=== PATIENT | female | born 1995 | race Caucasian/White ===

== ENCOUNTER 2016-05-05 15:39 | Emergency (ER) | payer MEDICAID ==
--- NOTE | 2016-05-05 16:09 | ER Document Report ---
ED Medical Screen (RME) - General Stated Complaint: FLU LIKE SYMPTOMS Notes: 21yo female c/o cold symptoms x 1 week. runny nose, sneezing, sore throat, no fever - Related Data Allergies/Adverse Reactions: No Known Allergies Allergy (Unverified 05/05/16 16:07) Physical Exam - Vital signs Vitals: Temp Pulse Resp BP Pulse Ox 97.9 F 83 16 122/73 99 05/05/16 15:53 05/05/16 15:53 05/05/16 15:53 05/05/16 15:53 05/05/16 15:53 Course - Vital Signs Vital signs: Temp Pulse Resp BP Pulse Ox 97.9 F 83 16 122/73 99 05/05/16 15:53 05/05/16 15:53 05/05/16 15:53 05/05/16 15:53 05/05/16 15:53
--- NOTE | 2016-05-05 17:41 | ER Document Report ---
ED General - General Chief Complaint: Cold Symptoms Stated Complaint: FLU LIKE SYMPTOMS Mode of Arrival: Ambulatory Information source: Patient Notes: Patient is 21 yo white FM who presents with 1 week history of rhinorrhea, sneezing, sore throat, productive cough (green mucus) and generalized body aches. She states one night she did have chills, did not check temperature and episode of nausea without vomiting. 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 She has tried OTC medications with no relief. TRAVEL OUTSIDE OF THE [place] IN LAST 30 DAYS: No - Related Data Allergies/Adverse Reactions: No Known Allergies Allergy (Unverified 05/05/16 16:07) Past Medical History - General Information source: Patient - Social History Smoking Status: Never Smoker Chew tobacco use (# tins/day): No Frequency of alcohol use: None Drug Abuse: None Family History: Malignancy Patient has suicidal ideation: No Patient has homicidal ideation: No Renal/ Medical History: Denies: Hx Peritoneal Dialysis - Immunizations Hx Diphtheria, Pertussis, Tetanus Vaccination: Yes Review of Systems - Review of Systems Constitutional: See HPI EENT: See HPI Cardiovascular: No symptoms reported Respiratory: No symptoms reported Gastrointestinal: See HPI Genitourinary: No symptoms reported Female Genitourinary: No symptoms reported Musculoskeletal: No symptoms reported Skin: No symptoms reported Hematologic/Lymphatic: No symptoms reported Neurological/Psychological: No symptoms reported Physical Exam - Vital signs Vitals: Temp Pulse Resp BP Pulse Ox 97.9 F 83 16 122/73 99 05/05/16 15:53 05/05/16 15:53 05/05/16 15:53 05/05/16 15:53 05/05/16 15:53 Interpretation: Normal - Notes Notes: PHYSICAL EXAM: CONSTITUTIONAL: Alert and oriented, well-appearing and in no acute distress. HENT: Normocephalic, atraumatic. Ear canals with cerumen impaction b/l. Nares clear without erythema, septal hematoma or deviation, airway patent. Oropharynx clear without erythema, tonsilar exudate or malocclusion. Trachea midline. Uvula midline. Moist mucous membranes. EYES: Pupils equal round and reactive to light, EOM intact. Sclera anicteric, conjunctiva are normal. No entrapment. NECK: supple without lymphadenopathy. ROM intact. HEART: Regular rate and rhythm without murmurs. LUNGS: CTAB and equal. No wheezes, rales or rhonchi. GI: Normactive bowel sounds. Nontender, non-distended. No organomegaly. no CVAT. EXTREMITIES: Normal range of motion, no pitting edema. No cyanosis. Cap Refill < 3 seconds. SKIN: Warm and dry. Normal turgor. No rashes or lesions noted. Course - Re-evaluation Re-evalutation: 05/05/16 18:26 Patient seen and examined. VSS, non-toxic in appearance. Exam consistent with viral syndrome, will obtain influenza swabs as requested. 05/05/16 19:45 Reviewed influenza swab - negative for A and B. 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 Discharged home in stable condition, follow-up with primary care doctor. - Vital Signs Vital signs: Temp Pulse Resp BP Pulse Ox 97.9 F 83 18 122/73 99 05/05/16 15:53 05/05/16 15:53 05/05/16 17:21 05/05/16 15:53 05/05/16 15:53 - Laboratory Laboratory results interpreted by me: Reviewed influenza - negative for A and B. Discharge - Discharge Clinical Impression: URI (upper respiratory infection) Qualifiers: URI type: unspecified URI Qualified Code(s): J06.9 - Acute upper respiratory infection, unspecified Disposition: HOME, SELF-CARE Additional Instructions: UPPER RESPIRATORY ILLNESS: You have a viral infection of the respiratory passages -- a "cold." This common infection causes nasal congestion, drainage, and often sore throat and cough. It is highly contagious. The disease usually lasts about 10 to 14 days. There is no "cure" for the viral infection -- it must run its course. If there is a complication, such as bacterial infection in the nose, sinuses, middle ear, or bronchial tubes, antibiotics may be required. The antibiotics won't affect the virus. Drink plenty of fluids. A humidifier may help. An expectorant medication or decongestant may make you more comfortable. Use acetaminophen or ibuprofen for fever or aches. See the doctor if fever persists over two days, if there is any significant worsening of your symptoms, or if you simply fail to improve as expected. DECONGESTANT MEDICATION: A decongestant medicine has been prescribed. Often this medicine is combined in the same tablet with an antihistamine or expectorant. This type of medicine is helpful in treating a bad cold or sinus condition, as well as in treatment of the nasal congestion of hay fever. It is not of much benefit for lung infections. Decongestant medicines are related to stimulants. They can cause an increase in blood pressure and heart rate. Persons with heart disease and high blood pressure should not take decongestants without discussing this with the physician. If you develop palpitations, chest pain, headache, or tremors, stop the medicine and consult your physician. COUGH-SUPPRESSANT & EXPECTORANT MEDICATION: You are to use a cough medication as needed for relief of symptoms. This medicine is a combination of an expectorant (to make the mucous thinner and more easily "coughed up") and a cough suppressant (to reduce the frequency of coughing). The cough-suppressant medicine is related to narcotics. You may experience mild nausea and sleepiness. Some patients who are very sensitive to narcotics may have stomach pain from this medicine. Taking the medicine with food reduces these side effects. Do not drive or work with machinery until you know how this medicine affects you. The expectorant should have no side effects. Iodine-containing expectorants (such as organidin) should not be taken by persons with active thyroid disease unless approved by your doctor. Call the doctor if you develop shortness of breath, hives, rash, itching, lightheadedness, or severe nausea and vomiting. STEROID MEDICATION: You have been given an injection of or oral medicine of the cortisone/ steroid class. This medication is used to control inflammation or allergy. Dc t is usually only given for a short period of time, until the acute process subsides. There are usually no side effects from short-term use of cortisone-like medications. Some persons feel an increased sense of well-being and are not sleepy at bedtime. Long-term use of cortisone medications is best avoided, unless required for a severe condition. If your condition does not remit, or relapses after the course of corticosteroid medication, you should consult your physician. Antibiotic Therapy You have been given an antibiotic prescription. It's important that you take all the medication, unless instructed otherwise by your physician. Failure to complete the entire course can result in relapse of your condition. Common side effects of antibiotics include nausea, intestinal cramping, or diarrhea. Women may develop vaginal yeast infections, and babies can get yeast (thrush) in the mouth following the use of antibiotics. Contact your physician if you develop significant side effects from this medication. Allergy to this antibiotic can result in hives, wheezing, faintness, or itching. If symptoms of allergy occur, stop the medication and call the doctor. USE OF ACETAMINOPHEN (Tylenol): Acetaminophen may be taken for pain relief or fever control. It's much safer than aspirin, offering a wider range of "safe" dosages. It is safe during . Some brand names are Tylenol, Panadol, Datril, Anacin 3, Tempra, and Liquiprin. Acetaminophen can be repeated every four hours. The following are maximum recommended dosages: >89 pounds or adults 650 mg to 900 mg Acetaminophen can be repeated every four hours. Maximum dose not to exceed 4000 mg a day. SMOKING: If you smoke, you should stop smoking. The tar and chemicals in cigarette smoke are harmful. Smoking has been shown to cause: emphysema chronic bronchitis lung cancer mouth and throat cancer stomach and pancreas cancer premature aging defects In addition, smoking increases ear and lung infections in children of smokers. FOLLOW-UP CARE: If you have been referred to a physician for follow-up care, call the physician s office for an appointment as you were instructed or within the next two days. If you experience worsening or a significant change in your symptoms, notify the physician immediately or return to the Emergency Department at any time for re-evaluation. Prescriptions: Phenol/Sodium Phenolate [Chloraseptic Sore Throat Taylor 177 ml] 2 sprays MM Q2HP PRN #1 bottle PRN Reason: Guaifenesin/D-Methorphan Hb [Guaifenesin-Dextromethorph Tab] 1 each PO Q12HP PRN #8 tab.sr.12h PRN Reason: Cough Azithromycin [Zithromax 250 mg Tablet] 250 mg PO ASDIR PRN #6 tablet PRN Reason: Ibuprofen [Motrin 600 Mg Tablet] 600 mg PO TID #15 tablet Prednisone [Deltasone 20 mg Tablet] 3 tab PO DAILY 5 Days
[2016-05-05 20:03] VITALS: BP 123/70
== END 2016-05-05 19:58 | disposition home or self-care (01) ==
LOC: ER 15:39
DX: J06.9 Acute upper respiratory infection, unspecified (principal); M79.1 Myalgia
CPT/HCPCS: 87804; 99283

== ENCOUNTER 2016-07-07 11:58 | Emergency (ER) | payer MEDICAID ==
[2016-07-07] MEDS ORDERED: KETOROLAC TROMETHAMINE 60 MG/2 ML SDV IM ONE (12:36)
--- NOTE | 2016-07-07 12:38 | ER Document Report ---
ED Medical Screen (RME) - General Chief Complaint: Flank Pain Stated Complaint: BACK/FLANK PAIN Notes: This 21-year-old female patient comes emergency room complaining of waking up this morning about 7 AM with right flank pain. There was some nausea and near vomiting. Her last menstrual period was 2 weeks ago and she reports she is abstinent. Has had a kidney stone once in the past. She also has a history of gallstones with pancreatitis. They have been medically treated to dissolve the stones and no surgery. She does work at [employer] does a lot of lifting but has never had back pain associated with job. I have greeted and performed a rapid initial assessment of this patient. A comprehensive ED assessment and evaluation of the patient, analysis of test results and completion of the medical decision making process will be conducted by additional ED providers. TRAVEL OUTSIDE OF THE [place] IN LAST 30 DAYS: No - Related Data Allergies/Adverse Reactions: No Known Allergies Allergy (Verified 07/07/16 12:21) Home Medications: Current Home Medications No Home Medications 07/07/16 [History] Past Medical History Renal/ Medical History: Denies: Hx Peritoneal Dialysis - Immunizations Hx Diphtheria, Pertussis, Tetanus Vaccination: Yes Physical Exam - Vital signs Vitals: Temp Pulse Resp BP Pulse Ox 97.6 F 69 18 131/65 H 99 07/07/16 12:22 07/07/16 12:22 07/07/16 12:22 07/07/16 12:07/07/16 12:22 Course - Vital Signs Vital signs: Temp Pulse Resp BP Pulse Ox 97.6 F 69 18 131/65 H 99 07/07/16 12:22 07/07/16 12:22 07/07/16 12:22 07/07/16 12:22 07/07/16 12:22
[2016-07-07 13:11] LABS: APPEARANCE,URINE SLIGHTLY-CLOUDY; BILIRUBIN,URINE NEGATIVE (NEGATIVE); GLUCOSE, URINE NEGATIVE (NEGATIVE); KETONES,URINE NEGATIVE (NEGATIVE); LEUKOCYTE ESTERASE,URINE SMALL (NEGATIVE); NITRITE,URINE NEGATIVE (NEGATIVE); PROTEIN,URINE NEGATIVE (NEGATIVE); URINE SPECIFIC GRAVITY 1.025; UROBILINOGEN,URINE NEGATIVE mg/dL (<2.0)
--- NOTE | 2016-07-07 14:40 | ER Document Report ---
ED General - General Time seen by provider: 14:55 Mode of Arrival: Ambulatory Information source: Patient TRAVEL OUTSIDE OF THE [place] IN LAST 30 DAYS: No - HPI Onset: Other - se HPI note Similar symptoms previously: No Recently seen / treated by doctor: No - General Chief Complaint: Flank Pain Stated Complaint: BACK/FLANK PAIN Notes: Patient is a 21-year-old female patient emergency department for lower back pain and flank pain. Patient states she's had this pain for about one week. Patient states her pain is on the right side and she has some slight pain on the lower buttocks. Patient also complains of some intermittent nausea. Patient states she has a history of kidney stones and pancreatitis and her father has history of kidney failure. Patient states she works at [employer], but that she probably lifts things when she is working. Patient's primary care physician and has no known allergies. Patient requests to have a school note for her [employer]. (SHANIQUA HOGAN) - Related Data Allergies/Adverse Reactions: No Known Allergies Allergy (Verified 07/07/16 12:21) Home Medications: Current Home Medications No Home Medications 07/07/16 [History] Past Medical History - General Information source: Patient - Social History Smoking Status: Never Smoker Cigarette use (# per day): No Chew tobacco use (# tins/day): No Frequency of alcohol use: None Drug Abuse: None Family History: Reviewed & Not Pertinent, Malignancy Patient has suicidal ideation: No Patient has homicidal ideation: No Renal/ Medical History: Reports: Hx Kidney Stones Surgical Hx: Negative - Immunizations Hx Diphtheria, Pertussis, Tetanus Vaccination: Yes Review of Systems - Review of Systems Constitutional: No symptoms reported EENT: No symptoms reported Cardiovascular: No symptoms reported Respiratory: No symptoms reported Gastrointestinal: See HPI, Nausea Genitourinary: See HPI, Flank pain Female Genitourinary: No symptoms reported Musculoskeletal: See HPI, Back pain Skin: No symptoms reported Hematologic/Lymphatic: No symptoms reported Neurological/Psychological: No symptoms reported -: Yes All other systems reviewed and negative Physical Exam - Vital signs Interpretation: Normal - General General appearance: Appears well, Alert In distress: Mild - HEENT Head: Normocephalic, Atraumatic Eyes: Normal Pupils: PERRL Mucous membranes: Moist - Respiratory Respiratory status: No respiratory distress Chest status: Nontender Breath sounds: Normal Chest palpation: Normal - Cardiovascular Rhythm: Regular Heart sounds: Normal auscultation Murmur: No - Abdominal Inspection: Normal Distension: No distension Bowel sounds: Normal Tenderness: Nontender Organomegaly: No organomegaly - Back Back: Tender - reproducible paralumbar muscle skeletal tenderness on the right in the sciatic region with no midline tenderness step-off or deformity - Extremities General upper extremity: Normal inspection, Normal ROM, Normal strength General lower extremity: Normal inspection, Normal ROM, Normal strength - Neurological Neuro grossly intact: Yes Cognition: Normal Orientation: AAOx4 Shayy Coma Scale Eye Opening: Spontaneous [place] Coma Scale Verbal: Oriented [place] Coma Scale Motor: Obeys Commands Troy Coma Scale Total: 15 Speech: Normal Sensory: Normal - Psychological Associated symptoms: Normal affect, Normal mood - Skin Skin Temperature: Warm Skin Moisture: Dry Course - Re-evaluation Re-evalutation: 07/07/16 15:08 I personally performed the services described in the documentation, reviewed and edited the documentation which was dictated to my scribe in my presence, and it accurately records my words and actions. presents emergency per chief complaint of right low mid back pain it's been going on for week she described initially as flank pain and nausea and alluded to the fact that her dad had a history of kidney failure. She also stated she had a history of kidney stones and pancreatitis in the past. She evaluated by Dr. Feliz upfront negative urinalysis no blood. CT scan is normal on assessment she has reproducible paralumbar muscle skeletal tenderness on the right in the sciatic region with no midline tenderness step-off or deformity no history of trauma negative bilateral straight leg raise test reflexes pulses symmetrical. Recommend primary care physician for follow-up in the next 3-4 days school excuse for today for college Tylenol Motrin and discussed reasons for ED return sooner (ARUNA NOVOA) - Vital Signs Vital signs: Temp Pulse Resp BP Pulse Ox 97.7 F 59 L 19 97/64 L 97 07/07/16 15:19 07/07/16 15:19 07/07/16 15:19 07/07/16 15:19 07/07/16 15:19 - Laboratory Laboratory results interpreted by me: 07/07/16 12:50 Ur Leukocyte Esterase SMALL H Discharge - Discharge Clinical Impression: Low back pain Qualifiers: Chronicity: acute Back pain laterality: unspecified Sciatica presence: unspecified whether sciatica present Qualified Code(s): M54.5 - Low back pain Condition: Stable Disposition: HOME, SELF-CARE Additional Instructions: Low Back Pain Three out of every four people will have an episode of disabling back pain during their lifetime. Most commonly the pain is due to straining of the muscles and ligaments in the low back. Usual treatment includes: (1) Rest on a firm surface. Avoid lying on your stomach. (2) Ice pack the painful area. After a few days, gentle heat may be used intermittently to relax the area, or ice packs can be continued. (3) Medication may be needed -- muscle relaxers and antiinflammatory medicines are commonly used. (4) As the back improves, exercises are prescribed to strengthen the back and abdominal muscles. Your doctor will advise you on the proper care for your back at each stage in your recovery. You may be better in a few days -- or healing may take several weeks. If new symptoms of a "herniated disc" (radiation of pain, numbness, or tingling down the back of the leg or weakness in the leg) occur, you should be re-examined. Further testing may be necessary. Forms: Return to School Referrals: RAÚL LAM MD [ACTIVE STAFF] - Follow up in 3-5 days (Call for appointment to be seen in follow-up in 3-4 days and establish herself with a primary care physician return for increasing worsening or new symptoms) Scribe Attestation: 07/16/16 15:49 i personally performed the services described in the documentation, reviewed the documentation recorded by the scribe in my presence and it accurately and completely records my words and actions. (ARUNA NOVOA) Scribe Documentation - Scribe Written by Rosy:: Shaniqua Hogan 07/07/16 18:55 acting as scribe for :: Gautam
[2016-07-07 15:27] VITALS: BP 97/64
== END 2016-07-07 15:28 | disposition home or self-care (01) ==
LOC: ER 11:58
DX: M54.5 Low back pain (principal); R10.9 Unspecified abdominal pain; R11.0 Nausea; Z87.442 Personal history of urinary calculi
CPT/HCPCS: 99284; 96372; 81001; 74176; J1885

== ENCOUNTER 2017-11-30 22:02 | Emergency (ER) | payer SELFPAY ==
[2017-11-30 22:26] VITALS: BP 131/73
--- NOTE | 2017-12-01 00:50 | ER Document Report ---
HPI - HPI Pain Level: 4 Notes: Patient is a 22-year-old female who presents with multiple insect bites to the top of her left foot. Patient reports they have been there for approximately 2 3 weeks, has gotten worse with increasing redness. Patient reports it is painful and itchy. Denies any history of abscesses or MRSA. - REPRODUCTIVE LMP: na Past Medical History - Social History Smoking Status: Current Some Day Smoker Family History: Reviewed & Not Pertinent, Malignancy Renal/ Medical History: Reports: Hx Kidney Stones. Denies: Hx Peritoneal Dialysis - Immunizations Hx Diphtheria, Pertussis, Tetanus Vaccination: Yes Vertical Provider Document - CONSTITUTIONAL Notes: PHYSICAL EXAMINATION: GENERAL: Well-appearing, well-nourished and in no acute distress. HEAD: Atraumatic, normocephalic. EYES: Pupils equal round extraocular movements intact, conjunctiva are normal. ENT: Nares patent NECK: Normal range of motion LUNGS: No respiratory distress Musculoskeletal: Normal range of motion NEUROLOGICAL: Normal speech, normal gait. PSYCH: Normal mood, normal affect. SKIN: Warm, Dry, normal turgor, mild erythema and what appears to be an insect bite noted to dorsal surface of left foot, mild cellulitis noted. - INFECTION CONTROL TRAVEL OUTSIDE OF THE [place] IN LAST 30 DAYS: No Course - Re-evaluation Re-evalutation: Mild cellulitis noted to dorsal aspect of left foot, likely from some type of insect bites. Patient will be placed on p.o. antibiotics and given hydrocortisone cream for the itching. Patient is demanding a wound culture so one will be sent. - Vital Signs Vital signs: Temp Pulse Resp BP Pulse Ox 97.9 F 80 131/73 H 99 11/30/17 22:25 11/30/17 22:25 11/30/17 22:25 11/30/17 22:25 Discharge - Discharge Clinical Impression: Cellulitis Qualifiers: Site of cellulitis: extremity Site of cellulitis of extremity: lower extremity Laterality: left Qualified Code(s): L03.116 - Cellulitis of left lower limb Condition: Stable Disposition: HOME, SELF-CARE Additional Instructions: Cellulitis You have an infection of your skin and underlying soft tissues called cellulitis. This is due to bacteria, which can enter through any break in the skin, or even through an irritated hair follicle. Untreated, cellulitis will usually worsen. Antibiotics are required. Usually, warm packs or warm soaks, and elevation of the infected area are recommended. You should start getting better within 24 to 36 hours. Most infections respond quickly to the right medication. Follow-up care is important, however, to check for abscess (boil) formation, unsuspected foreign body, or resistant infection. If you develop fever, chills, or if the area of infection is becoming rapidly more swollen or painful, call the doctor at once. Please take medication as prescribed, you may use the hydrocortisone cream sparingly in case there is itching. Please keep the area clean and dry, try not to scratch the area while it is healing. Follow-up with your primary care provider in the next 3-5 days. Prescriptions: Cephalexin Monohydrate [Keflex 500 mg Capsule] 500 mg PO Q6H 5 Days #20 capsule Hydrocortisone/Oatmeal/Aloe/E [Hydrocortisone 1% Cream] 28.4 gm TP BID #1 cream.gm.
== END 2017-12-01 01:04 | disposition home or self-care (01) ==
LOC: ER 22:02
DX: L03.116 Cellulitis of left lower limb (principal); F17.200 Nicotine dependence, unspecified, uncomplicated; Z87.442 Personal history of urinary calculi
CPT/HCPCS: 87070; 87077; 87186; 87205; 99282